=== PATIENT | female | born 1960 | race Hispanic/Latino ===

== ENCOUNTER 2018-06-06 15:39 | Day surgery (SDC) | payer OTHER ==
[~2018-06-06] VITALS: Ht 157.5 cm; Wt 70.9 kg
[2018-06-06] MEDS ORDERED: GLUMETZA1000 M1 PO (16:05)
[2018-06-06] MEDS ORDERED: GLIMEPIRIDE4 MG PO (16:06)
[2018-06-06] MEDS ORDERED: JANUVIA100 MG PO (16:07)
[2018-06-06] MEDS ORDERED: LISINOPRIL40 MG PO (16:07)
[2018-06-06] MEDS ORDERED: HYDROCHLOROTHIA25 MG PO (16:09)
[2018-06-06 16:15] VITALS: BP 166/78
[2018-06-06 16:36] LABS: ALBUMIN 4.9 g/dL (3.2-4.8); CHLORIDE 101 mEq/L (99-109); POTASSIUM 3.7 mEq/L (3.7-5.4); SODIUM 134 mEq/L (136-147)
[2018-06-06 16:38] LABS: GLUCOSE 197 mg/dL (70-99)
[2018-06-06 16:39] LABS: TOTAL PROTEIN 8.8 g/dL (6.4-8.3)
[2018-06-06 16:40] LABS: TOTAL BILIRUBIN 1.1 mg/dL (0.0-1.0)
[2018-06-06 16:42] LABS: ALKALINE PHOSPHATASE 78 IU/L (3-129); CREATININE 0.7 mg/dL (0.6-1.3); GFR ESTIMATE (CALCULATED) > 59 mL/min/
[2018-06-06 16:43] LABS: UREA NITROGEN (BUN) 11 mg/dL (9-23)
[2018-06-06 16:44] LABS: AST (GOT) 31 IU/L (2-34)
[2018-06-06 16:45] LABS: ALT (GPT) 57 IU/L (3-49)
[2018-06-06 17:07] LABS: HEMATOCRIT 42.1 % (36.0-46.0); HEMOGLOBIN 14.5 G/DL (11.9-15.5); MCHC 34.4 G/DL (30.0-36.0); MCV 81.4 FL (83-99); PLAT.SUFFICIENCY ADEQUATE; PLATELET COUNT 205 K/uL (156-360); RBC DIS.WIDTH-CV 12.2 % (11.8-14.6); RED BLOOD COUNT 5.17 M/uL (3.80-5.20); WHITE BLOOD COUNT 17.2 K/uL (4.1-10.2)
[2018-06-06 20:36] VITALS: BP 108/60
[2018-06-06 21:00] VITALS: BP 109/58
== END 2018-06-06 21:07 | disposition home or self-care (01) ==
LOC: SDC 15:39
PROVIDERS: Ophthalmology
PROC: 08B53ZZ Excision of Left Vitreous, Percutaneous Approach (ICD-10-PCS; principal; 2018-06-06)
PROC: 08NF3ZZ Release Left Retina, Percutaneous Approach (ICD-10-PCS; principal; 2018-06-06)
DX: H44.002 Unspecified purulent endophthalmitis, left eye (principal); H21.542 Posterior synechiae (iris), left eye; H35.372 Puckering of macula, left eye; E11.319 Type 2 diabetes mellitus with unspecified diabetic retinopathy without macular edema; I10 Essential (primary) hypertension; Z79.84 Long term (current) use of oral hypoglycemic drugs
CPT/HCPCS: 80053; 82948; 85027; 87102; 87205; J0690; J1100; J1120; J1170; J1885; J2795; J3010